=== PATIENT | female | born 1955 | race Two or more races ===

== ENCOUNTER 2025-05-18 15:14 | Emergency (ER) | payer OTHER, MEDICAID ==
[~2025-05-18] VITALS: Ht 127 cm; Wt 60.0 kg
--- NOTE | 2025-05-18 16:05 | DVH ---
Indication: SHOULDER DISLOCATION Technique: XY R SHOULDER 2+ VIEW XRAYXY Comparison: None FINDINGS/IMPRESSION: Anterior/inferior dislocation of the right humeral head. Right humeral head hill-Sachs lesion. Fragmentation in the superior right glenoid which could represent fracture, heterotopic mineralizatio n / sequela of previous trauma/dislocation.
[2025-05-18 17:00] VITALS: PULSE 69; RESP 17; O2SAT 96
[2025-05-18] MEDS: fentaNYL CITRATE 100 MCG/2 ML VL IV ONE ×2 (17:00→17:59)
--- NOTE | 2025-05-18 18:05 | DVH ---
CLINICAL INDICATION: post right shoulder reduction TECHNIQUE: 2 radiographic views of the right shoulder were obtained. Comparison: XY R SHOULDER 2+ VIEW XRAY on DOS: 05/18/25 FINDINGS/IMPRESSION: Persistent anterior dislocation of the right humerus. No fractures seen.
--- NOTE | 2025-05-18 18:26 | ECG ---
[facility] Test Date: 2025-05-18 Test Time: 18:17:55 Pat Name: SHARATH MALCOLM Department: [facility] ED Patient ID: [facility]-[id number] Room: Gender: F [employer] Operator: LYNDA : 1955 Requested By: OTF GU Order Number: [id number] Reading MD: Measurements Intervals [place] Rate: 53 P: 28 WI: 159 QRS: 7 QRSD: 89 T: 19 QT: 431 QTc: 405 Interpretive Statements Sinus rhythm Please click the below link to view image of tracing.
[2025-05-18 18:36] LABS: Hematocrit 36.2 % (36.0-46.0); Hemoglobin 12.6 g/dL (12.2-16.2); Mean Corpuscular Hemoglobin 32.2 pg (28.0-32.0); Mean Corpuscular Volume 92.6 fL (80.0-100.0); Nucleated Red Blood Cells % 0.1 %
[2025-05-18 18:53] LABS: Chloride 104 mmol/L (98-107); Sodium 141 mmol/L (136-145)
[2025-05-18 18:54] LABS: Anion Gap 10 (5-15); Calcium 8.8 mg/dL (8.7-10.4); Carbon Dioxide 27 mmol/L (20-31)
[2025-05-18 18:59] LABS: BUN/Creatinine Ratio 18.3 (10.0-20.0); Blood Urea Nitrogen 13 mg/dL (9-23)
[2025-05-18 19:00] LABS: Glucose 116 mg/dL (74-106); Potassium 3.4 mmol/L (3.5-5.1)
[2025-05-18 20:00] VITALS: TEMP 98.3
[2025-05-18] MEDS: PROPOFOL 10 MG/ML 20 ML IV ONE (21:17)
--- NOTE | 2025-05-18 21:54 | DVH ---
CLINICAL INDICATION: RIGHT SHOULD DISLOCATION TECHNIQUE: 2 views XY R SHOULDER 2+ VIEW XRAY Comparison: XY R SHOULDER 2+ VIEW XRAY on DOS: 05/18/25, XY R SHOULDER 2+ VIEW XRAY on DOS: 05/18/25 FINDINGS: See below. IMPRESSION: 1. Interval successful reduction of the right shoulder. No evidence of residual subluxation. 2. Glenoid remodeling with evidence of a transverse fracture, which may be acute or chronic. 3. No other significant interval change from 4 hours prior.
[2025-05-18] MEDS: hydrALAZINE HCL 20 MG/ML VL IV ONE ×2 (22:07→22:48)
[2025-05-18 23:25] VITALS: BP 149/71; PULSE 86; RESP 12; O2SAT 96
--- NOTE | 2025-05-19 11:19 | ED.PDOC ---
Musculoskeletal HPI Comments HPI: This is a 69 year old female presenting to the ED with chief complaint of right shoulder dislocation. Patient reports that she had been lifting a heavy bucket of dirt 8 days ago when she had felt a pop in her shoulder with immediate pain noted. Patient relays that she had an XR ordered 5 days ago by her PCP, however, she barely received a call today regarding her results. Patient states her PCP informed her she had a dislocated right shoulder and was advised to come to the ED for further treatment. Patient notes that she has taken Tylenol and inflammation medication with little relief in pain. Patient denies any numbness, weakness, or tingling. Past Medical History: HTN, HLD Past Surgical History: Social History: Denies smoking, ETOH, or drug use. Medications: Reviewed Allergies: NKDA knowles: R SHOULDER DISLOCATAION HPI: Poor Historian. Past Medical History: Past Surgical History: REVIEW OF SYSTEMS: CONSTITUTIONAL: Denies acute: fever, diaphoresis, chills, generalized weakness. HEAD: Denies acute: headache, photophobia Eyes: Denies acute: Double vision, vision loss, eye pain, eye discharge. EARS: Denies acute: tinnitus, hearing loss, ear discharge, ear pain, THROAT: Denies acute: sore throat, swelling, difficulty swallowing , pain with swallowing, change in voice. NECK: Denies acute: neck pain, neck swelling, stiff neck. HEART: Denies acute : chest pain, palpitations, LUNGS: Denies acute: SOB, wheezing, cough, hemoptysis ABDOMEN: Denies acute: abdominal pain, Nausea, Vomiting, diarrhea, melena , hematemesis, hematochezia SKIN: Denies acute: rash, redness, lesions, itchiness. EXTREMITIES: Denies acute: calf pain, numbness, tingling, weakness, Denies acute: Low back pain. Neuro: Denies acute: focal neurological deficit, motor or sensory focal neurological deficit, tremors, seizure like activity, confusion, dizziness, change in mental status, loss of bowel or bladder function, cauda equina like symptoms. : Denies acute: dysuria, hematuria, flank pain, increase in urinary frequency. PSYCH: Denies acute: hallucination, suicidal ideation, homicidal ideation. FEMALE: Denies acute: abnormal vaginal bleeding, foul odor, unusual discharge. PHYSICAL EXAM: General: ----mild----acute distress, awake and alert. Head: normocephalic, atraumatic. Neck: supple, trachea is midline, no swelling. Throat: Normal phonation. Eyes:, no erythema, no purulent discharge, no proptosis, no icterus. Heart: regular rate, regular rhythm, no significant murmur appreciated. Lungs: no apparent respiratory distress, Able to speak in full sentences. No wheezing, no rhonchi, no crackles. No stridors Clear to auscultation bilaterally. Abdomen: non tender to palpation, non distended, soft, no guarding, no rebound, + bowel sounds. Neuro: Awake, Alert, oriented to name, self, situation, follows commands GCS=15. Speech is normal. Skin: no petechia, no purpura, no cyanosis, non-pale, not jaundice. Lower extremities: --no - Pitting edema no deformity, no focal swelling, no calf TTP. Makes eye contact. moves all four extremities. Face: no apparent facial droop. Ambulating in the ED independently. Evaluation of right upper extremity right shoulder: decreased range of motion of right upper extremity shoulder secondary to pain. Patient is able to fully extend and flex the right elbow.. Patient is neurovascularly intact in the affected extremity. Radial pulses palpable. Sensory and motor are present. Good skull grinder muscle. Patient was placed on a sling immediately upon arrival. ED COURSE: DISCLAIMER: This medical document was created using an electronic medical record system with voice recognition software and computerized dictation system. Although this document has been carefully reviewed, there might still be some phonetic and typographical errors. Occasional wrong-word or "sound-alike" substitutions may have occurred due to the inherent limitations of voice recognition software. These areas are purely typographical due to imperfections of the software programs and do not reflect any compromise in the patient's medical care. Please read the chart carefully and recognize, using context, where these substitutions have occurred. Chief Complaint: Upper Extremity Time Seen by MD: 16:24 Reviewed Notes: Medications, Allergies Allergies: Coded Allergies: NO KNOWN ALLERGIES (Unverified , 05/18/25) Information Source: Patient Mode of Arrival: Ambulatory Location: Right Was a procedure done? Was a procedure done?: Yes Sedation Sedation?: No Reduction Indication: Dislocation Sedation: Consents obtained Intra-articular anesthetic ashleigh: No Post-reduction x-ray show: Reduction, Good Alignment Informed consent obtained: Yes Risks/benefits/alt described: Yes Other Procedure Procedure Closed right shoulder reduction Indication Dislocation Anesthetic 60 mg propofol given Success RT was at bedside, no acute events noted, successful right shoulder reduction noted with postreduction x-ray Informed consent obtained: Yes Risks, benefits, and alternati: Yes Differential Diagnosis EXT Differential Diagnosis: Deep Vein Thrombosis, Compartment Syndrome, Fracture, Sprain, Dislocation, Strain, Septic, Neurovascular injury, Arthritis, Bursitis X-Ray, Labs, Meds, VS Vital Signs Date Time Temp Pulse Resp B/P (MAP) Pulse Ox O2 Delivery O2 Flow Rate FiO2 05/18/25 23:25 86 12 149/71 (97) 96 05/18/25 22:48 174/69 05/18/25 22:07 187/69 05/18/25 21:35 57 20 188/68 (108) 95 05/18/25 21:30 57 18 152/42 (78) 95 05/18/25 21:25 57 20 164/79 (107) 91 05/18/25 21:20 52 14 207/60 (109) 100 05/18/25 21:15 79 24 96 2.0 28 58 30 100 57 100 05/18/25 21:15 73 16 206/81 (122) 100 05/18/25 21:10 67 17 193/85 (121) 99 05/18/25 21:00 62 20 179/67 (104) 100 05/18/25 20:00 98.3 75 22 169/79 (109) 95 98.3 05/18/25 19:30 Room Air* 0 21 05/18/25 18:26 53 05/18/25 17:59 154/66 05/18/25 17:00 154/66 05/18/25 17:00 69 17 96 Room Air* 0 21 05/18/25 17:00 98.2 69 17 154/66 (95) 97 98.2 05/18/25 15:15 97.8 83 18 198/100 96 97.8 Lab Test 05/18/25 18:24 Range/Units White Blood Count 6.4 4.4-10.8 10^3/uL Red Blood Count 3.91 L 4.0-5.20 10^6/uL Hemoglobin 12.6 12.2-16.2 g/dL Hematocrit 36.2 36.0-46.0 % Mean Corpuscular Volume 92.6 80.0-100.0 fL Mean Corpuscular Hemoglobin 32.2 H 28.0-32.0 pg Mean Corpuscular Hemoglobin Concent 34.8 32.0-36.0 g/dL Red Cell Distribution Width 12.8 11.8-14.3 % Platelet Count 237 140-450 10^3/uL Mean Platelet Volume 7.3 6.9-10.8 fL Neutrophils (%) (Auto) 69.4 37.0-80.0 % Lymphocytes (%) (Auto) 22.9 10.0-50.0 % Monocytes (%) (Auto) 6.9 0.0-12.0 % Eosinophils (%) (Auto) 0.3 0.0-7.0 % Basophils (%) (Auto) 0.5 0.0-2.0 % Neutrophils # (Auto) 4.5 1.6-8.6 10 ^3/uL Lymphocytes # (Auto) 1.5 0.4-5.4 10 ^3/uL Monocytes # (Auto) 0.4 0-1.3 10 ^3/uL Eosinophils # (Auto) 0 0-0.8 10 ^3/uL Basophils # (Auto) 0 0-0.2 10 ^3/uL Nucleated Red Blood Cells 0.1 % Sodium Level 141 136-145 mmol/L Potassium Level 3.4 L 3.5-5.1 mmol/L Chloride Level 104 98-107 mmol/L Carbon Dioxide Level 27 20-31 mmol/L Anion Gap 10 5-15 Blood Urea Nitrogen 13 9-23 mg/dL Creatinine 0.71 0.550-1.02 mg/dL Glomerular Filtration Rate Calc 91 >90 mL/min BUN/Creatinine Ratio 18.3 10.0-20.0 Serum Glucose 116 H 74-106 mg/dL Calcium Level 8.8 8.7-10.4 mg/dL Current Medications Medications (Trade) Dose Ordered Sig/Ruth Route Start Time Stop Time Status Last Admin Fentanyl Citrate 50 mcg ONCE ONCE IV 05/18/25 17:45 05/18/25 17:46 DC 05/18/25 17:59 Propofol (Diprivan) 60 mg ONCE ONCE IV 05/18/25 20:15 05/18/25 20:16 DC 05/18/25 21:17 Hydralazine HCl (Apresoline Injection) 5 mg ONCE ONCE IV 05/18/25 22:00 05/18/25 22:01 DC 05/18/25 22:07 Hydralazine HCl (Apresoline Injection) 5 mg ONCE ONCE IV 05/18/25 23:00 05/18/25 23:01 DC 05/18/25 22:48 [place] [address] Ph: [phone] DIAGNOSTIC IMAGING Diagnostic Imaging Report : [id number] Signed PATIENT: LARRY HOANGAACCT: [id number] UNIT: [id number] : 1955 LOC: ER ROOM / BED: / AGE / SEX: 69 / F ADM STATUS: REG ER SERVICE [id number] ORDERING PHYSICIAN: OTF GU DO PROCEDURE(s): RSHD2 - R SHOULDER 2+ VIEW XRAY REASON: SHOULDER DISLOCATION ORDER NUMBER(s): [id number], ACCESSION NUMBER(s): [id number] Indication: SHOULDER DISLOCATION Technique: XY R SHOULDER 2+ VIEW XRAYXY Comparison: None FINDINGS/IMPRESSION: Anterior/inferior dislocation of the right humeral head. Right humeral head hill-Sachs lesion. Fragmentation in the superior right glenoid which could represent fracture, heterotopic mineralization / sequela of previous trauma/dislocation. ATED BY: IJEOMA MILLER MD DICTATED DATE/TIME: 05/18/25 160 SIGNED BY: IJEOMA MILLER MD SIGNED DATE/TIME: 05/18/25 160 CC: [address] [address] Ph: [phone] DIAGNOSTIC IMAGING Diagnostic Imaging Report : [id number] Signed PATIENT: BRITT HOANGCT: [id number] UNIT: [id number] : 1955 LOC: ER ROOM / BED: / AGE / SEX: 69 / F ADM STATUS: REG ER SERVICE 172 ORDERING PHYSICIAN: OTF GU DO PROCEDURE(s): RSHD2 - R SHOULDER 2+ VIEW XRAY REASON: post right shoulder reduction ORDER NUMBER(s): [id number], ACCESSION NUMBER(s): [id number] CLINICAL INDICATION: post right shoulder reduction TECHNIQUE: 2 radiographic views of the right shoulder were obtained. Comparison: XY R SHOULDER 2+ VIEW XRAY on DOS: 05/18/25 FINDINGS/IMPRESSION: Persistent anterior dislocation of the right humerus. No fractures seen. ATED BY: INGA RENAE Jr., DO DICTATED DATE/TIME: 05/18/251801 SIGNED BY: INGA RENAE Jr., DO SIGNED DATE/TIME: 05/18/251801 CC: [place] [address] Ph: [phone] DIAGNOSTIC IMAGING Diagnostic Imaging Report : [id number] Signed PATIENT: LARRY HOANGAACCT: [id number] UNIT: [id number] : 1955 LOC: ER ROOM / BED: / AGE / SEX: 69 / F ADM STATUS: REG ER SERVICE 20 ORDERING PHYSICIAN: OTF GU DO PROCEDURE(s): RSHD2 - R SHOULDER 2+ VIEW XRAY REASON: RIGHT SHOULD DISLOCATION ORDER NUMBER(s): [id number], ACCESSION NUMBER(s): [id number] CLINICAL INDICATION: RIGHT SHOULD DISLOCATION TECHNIQUE: 2 views XY R SHOULDER 2+ VIEW XRAY Comparison: XY R SHOULDER 2+ VIEW XRAY on DOS: 05/18/25, XY R SHOULDER 2+ VIEW XRAY on DOS: 05/18/25 FINDINGS: See below. IMPRESSION: 1. Interval successful reduction of the right shoulder. No evidence of residual subluxation. 2. Glenoid remodeling with evidence of a transverse fracture, which may be acute or chronic. 3. No other significant interval change from 4 hours prior. ATED BY: CORONA QUINONEZ MD DICTATED DATE/TIME: 05/18/252150 SIGNED BY: CORONA QUINONEZ MD SIGNED DATE/TIME: 05/18/252150 CC: Time of 1ST Reevaluation: 17:24 Reevaluation 1ST: Unchanged Patient Education/Counseling: Diagnosis, Treatment Family Education/Counseling: Diagnosis, Treatment Comments MDM: patient presented with the above HPI.----right shoulder dislocation--workup was initiated. patient was found with the above mentioned diagnosis. the following medications were ordered: please refer to order lists of meds and tests obtained by myself Dr. Gu. Patient ED course and VS have been stabilized. Patient has been reassessed in the ED and remained in a stable condition. Pertinent incidental findings were discussed with the patient and/or family. Patient/family voices understanding and is agreeable with plan. Patient has been observed in the ED adequate length of time to insure improvement/stability. Escalation of care considered: Consideration of escalation to observation or admission X-ray shows possible fracture. Injury happened approximately a week ago. We attempted to reduce the right shoulder dislocation with pain control only but was unsuccessful. Procedure sedation was performed after consent. Successful reduction completed from 1st attempt. X-ray obtained to confirm reduction. Patient was placed in a sling. Patient remained neurovascularly intact in the affected extremity. Patient had some hypertension and she did not take her medicine today. Patient was given hypertension medication prior to discharge. Patient was DISCHARGED home in a stable condition. All the reports of any imaging studies that were ordered by myself were reviewed by myself. Departure 1 Departure Time of Disposition: 22:05 Impression: Primary Impression: Dislocation of right shoulder joint Additional Impressions: History of conscious sedation Hypertension Disposition: 01 HOME / SELF CARE / HOMELESS Condition: Stable Additional Instructions: Additional instructions: Please read all instructions provided in this packet carefully. You MUST follow-up with your primary care/family doctor in 1 to 2 days. If you are unable to see your primary care/family doctor, please return to our emergency room for re-assessment and re-evaluation in 1 to 2 days. Return to the emergency room here in our facility or to the nearest ER [facility] if your symptoms change or worsen. CONSULTATIONS: you MUST Follow-up for consultation as soon as possible with: ---orthopedic surgeon in 1-2 days. Please call for appointment.- You MUST call the consultants office yourself to make an appointment. You may need to arrange that through your insurance and/or your primary/family doctor. If you are unable to see the hospice care consultant in 1 to 2 days, you must return to our emergency room (or any other ER of your choice) for re-assessment and re- evaluation. Adequate fluid hydration. Although you have been discharged from the Emergency Department, this does not mean that you have a "clean bill of health". No definitive diagnosis for your symptoms has been made today. It is possible that you are in the process of developing a serious illness. This is why you must return to the ED without fail if any new or worsening symptoms develop. Continue wearing the sling until you follow up with the orthopedic doctor. Monitoring blood pressure at home at least 3 times a day. Patient precautions. Do not operate any machinery or make important decisions in the next 48 hours. Below is a copy of your radiological report for follow up: [address] [address] Ph: [phone] DIAGNOSTIC IMAGING Diagnostic Imaging Report : [id number] Signed PATIENT: SHARATH HOANG ACCT: [id number] UNIT: [id number] : 1955 LOC: ER ROOM / BED: / AGE / SEX: 69 / F ADM STATUS: REG ER SERVICE 26 ORDERING PHYSICIAN: OTF GU DO PROCEDURE(s): RSHD2 - R SHOULDER 2+ VIEW XRAY REASON: SHOULDER DISLOCATION ORDER NUMBER(s): [id number], ACCESSION NUMBER(s): [id number] Indication: SHOULDER DISLOCATION Technique: XY R SHOULDER 2+ VIEW XRAYXY Comparison: None FINDINGS/IMPRESSION: Anterior/inferior dislocation of the right humeral head. Right humeral head hill-Sachs lesion. Fragmentation in the superior right glenoid which could represent fracture, heterotopic mineralization / sequela of previous trauma/dislocation. ATED BY: IJEOMA MILLER MD DICTATED DATE/TIME: 05/18/253 SIGNED BY: IJEOMA MILLER MD SIGNED DATE/TIME: 05/18/254 CC: [address] - [address] Ph: [phone] DIAGNOSTIC IMAGING Diagnostic Imaging Report : [id number] Signed PATIENT: SHARATH HOANG ACCT: [id number] UNIT: [id number] : 1955 LOC: ER ROOM / BED: / AGE / SEX: 69 / F ADM STATUS: REG ER SERVICE 20 ORDERING PHYSICIAN: OTF GU DO PROCEDURE(s): RSHD2 - R SHOULDER 2+ VIEW XRAY REASON: RIGHT SHOULD DISLOCATION ORDER NUMBER(s): [id number], ACCESSION NUMBER(s): [id number] CLINICAL INDICATION: RIGHT SHOULD DISLOCATION TECHNIQUE: 2 views XY R SHOULDER 2+ VIEW XRAY Comparison: XY R SHOULDER 2+ VIEW XRAY on DOS: 05/18/25, XY R SHOULDER 2+ VIEW XRAY on DOS: 05/18/25 FINDINGS: See below. IMPRESSION: 1. Interval successful reduction of the right shoulder. No evidence of residual subluxation. 2. Glenoid remodeling with evidence of a transverse fracture, which may be acute or chronic. 3. No other significant interval change from 4 hours prior. ATED BY: CORONA QUINONZE MD DICTATED DATE/TIME: 05/18/252150 SIGNED BY: CORONA QUINONEZ MD SIGNED DATE/TIME: 05/18/252150 CC: Discharged With: Self Critical Care Note Critical Care Time?: Yes (45 min-critical care time only) I personally scribed for OTF GU DO ([email or web address]) on 05/18/25 at 16:27. Electronically submitted by Mk Lee ([email or web address]). I personally scribed for OTF GU DO ([email or web address]) on 05/18/25 at 17:57. Electronically submitted by Mk Lee ([email or web address]). I personally scribed for OTF GU DO ([email or web address]) on 05/18/25 at 19:25. Electronically submitted by Maurisio Pham ([email or web address]). I personally scribed for OTF GU DO ([email or web address]) on 05/18/25 at 22:11. Electronically submitted by Maurisio Pham ([facility]). OTF GU DO May 18, 2025 16:27
== END 2025-05-18 23:35 | disposition home or self-care (01) ==
LOC: ER 15:14
DX: S43.034A Inferior dislocation of right humerus, initial encounter (principal); I10 Essential (primary) hypertension; E78.5 Hyperlipidemia, unspecified; Z92.83 Personal history of failed moderate sedation; X50.0XXA Overexertion from strenuous movement or load, initial encounter; Y93.89 Activity, other specified; Y92.89 Other specified places as the place of occurrence of the external cause; Y99.8 Other external cause status
CPT/HCPCS: 23650; 36415; 73030; 80048; 85025; 93005; 96374; 96375; 96376; 99285; J0360; J2704; J3010